=== PATIENT | female | born 1995 | race African-American/Black ===

== ENCOUNTER 2016-12-16 18:41 | Emergency (ER) | payer OTHER ==
[~2016-12-16] VITALS: Ht 157.5 cm; Wt 69.4 kg
--- NOTE | ~2016-12-16 | US106 ---
[facility] A Service of [facility] RADIOLOGY TEXT RESULTS PATIENT: BERNA MTZ LOCATION: SED : 95 UNIT #: [id number] AGE: [address]: Naman Steele MD SEX: F ORDER DR: [id number] [address] [address] [id number] E MR#: [id number] Acc #: [id number] NAME: BERNA MTZ : 1995 SEX: F STUDY DATE/TIME: 12/16/2016 20:45 UNIT: SED ROOM: STUDY DESCRIPTION: US Preg Uterus Transvaginal Attending Physician: Naman Steele M.D. Ordering Physician: Naman Steele M.D. Primary Care Physician: Primary Care Physician No MEDICAL IMAGING REPORT This report is preliminary unless electronic signature is present. EXAM Pelvic ultrasound INDICATIONS Pelvic cramping for 1.5 weeks. G2, P1, A1. Quantitative HCG 18,328. LMP 09/24/2016. COMPARISON None available. FINDINGS There is a single intrauterine identified. There is a positive heart rate of 153 bpm. movement is identified. There is an estimated gestational age of 16 weeks, 3 days. Amniotic fluid volume is within normal limits. There is an anterior position of the placenta. IMPRESSION Live intrauterine consistent with an estimated gestational age of 16 weeks, 3 days. Dictated by... Minesh Alejo M.D. THIS IS AN ELECTRONICALLY VERIFIED REPORT Minesh Alejo M.D. at 12/17/2016 3:12 PM [facility] TD: 12/16/2016 22:32 JOB #: [id number] MEDICAL IMAGING REPORT [facility] A Service [facility] RADIOLOGY TEXT RESULTS PATIENT: BERNA MTZ LOCATION: SED : 95 UNIT #: [id number] AGE: [address]: Naman Steele MD SEX: F ORDER DR: Page 1 of 1
[2016-12-16] MEDS ORDERED: NO MEDICATIONS (18:58)
[2016-12-16 19:16] LABS: URINE SOURCE CLEAN CATCH
[2016-12-16 19:20] LABS: URINE APPEARANCE HAZY; URINE BLOOD TRACE-INTACT (NEG); URINE COLOR YELLOW; URINE GLUCOSE NEG (NORM); URINE LEUKOCYTE ESTERASE 3+ (NEG); URINE NITRATE NEG (NEG); URINE PROTEIN TRACE (NEG); URINE SPECIFIC GRAVITY >=1.030 (1.003-1.035)
[2016-12-16 19:25] LABS: BASOPHIL# 0.1 X10e3 (0-0.3); BASOPHIL% 0.6 % (0-2.5); EOSINOPHIL# 0.1 X10e3 (0-0.7); EOSINOPHIL% 0.6 % (0.0-7.0); HEMOGLOBIN 11.6 gm/dL (12.0-16.0); LYMPHOCYTE# 1.1 X10e3 (1.0-3.5); LYMPHOCYTE% 12.9 % (17.0-45.0); MEAN CELL VOLUME 94.4 FL (83-96); MEAN CORPUSCULAR HEMOGLOBIN 31.3 PG (28-34); MEAN CORPUSCULAR HGB CONC 33.2 g/dL (30-36); MEAN PLATELET VOLUME 9.8 FL (6.5-11.5); MONOCYTE# 0.6 X10e3 (0-1.0); MONOCYTE% 6.3 % (3.0-12.0); NEUTROPHIL% 79.6 % (40-75); PLATELET COUNT 150 X10e3 (140-420); RED BLOOD COUNT 3.71 X10e (3.90-5.30); RED CELL DISTRIBUTION WIDTH 14.6 % (11.0-15.5); WHITE BLOOD COUNT 8.8 X10e3 (4.0-10.5)
[2016-12-16 19:27] LABS: DIFF IND NO
[2016-12-16 19:33] LABS: URINE KETONE 3+ (NEG)
[2016-12-16 19:34] LABS: MICRO INDICATED? YES; URINE BILIRUBIN NEG (NEG); URINE WBC 200-300 /[HPF] (0-5)
[2016-12-16 19:35] LABS: CULTURE INDICATED? YES; URINE BACTERIA 1+ (NEG); URINE MUCUS PRESENT; URINE SQUAMOUS EPITHELIAL CELL MANY /[HPF]
[2016-12-16 19:42] LABS: ALBUMIN SERUM 3.5 g/dL (3.5-5.0); ALKALINE PHOSPHATASE 54 U/L (32-92); ALT (SGPT) 11 U/L (10-40); AST (SGOT) 17 U/L (10-42); BILIRUBIN,TOTAL 0.2 mg/dL (0.2-2.0); BLOOD UREA NITROGEN 10 mg/dL (9-23); CALCIUM SERUM 8.8 mg/dL (8.4-10.2); CARBON DIOXIDE 22 mmol/L (22-31); CHLORIDE 105 mmol/L (100-111); CREATININE SERUM 0.5 mg/dL (0.6-1.4); GLOM FILT RATE Estimated 160.4 mL/min (>60); GLUCOSE FASTING 105 mg/dL (70-110); LIPASE 28 U/L (22-51); POTASSIUM 3.2 mmol/L (3.5-5.1); PROTEIN TOTAL SERUM 6.9 g/dL (6.0-8.3); SODIUM 134 mmol/L (135-145)
[2016-12-16 19:44] LABS: BILIRUBIN, DIRECT <0.1 mg/dL (0.0-0.2); BILIRUBIN,INDIRECT 0.1 mg/dL (0.0-0.9)
[2016-12-16] MEDS ORDERED: MACROBID100 M1 DOB (21:34)
[2016-12-16] MEDS ORDERED: CITRANATAL B-C1 EAC1 PO (21:34)
[2016-12-20 22:29] LABS: CHLAMYDIA TRACH Not Detected (Not Detected); N GONOR Not Detected (Not Detected)
== END 2016-12-16 21:34 | disposition home or self-care (01) ==
LOC: SED 18:41
PROVIDERS: Emergency Medicine
DX: O23.40 Unspecified infection of urinary tract in pregnancy, unspecified trimester (principal); N39.0 Urinary tract infection, site not specified; F17.210 Nicotine dependence, cigarettes, uncomplicated
CPT/HCPCS: 76817; 80048; 80076; 81003; 83690; 84702; 84703; 85025; 86900; 86901; 87086; 87491; 87591; 87808; 87905; 99284